=== PATIENT | female | born 1965 | race Two or more races ===

== ENCOUNTER 2021-06-07 14:41 | Emergency (ER) | payer MEDICAID ==
[~2021-06-07] VITALS: Ht 165.1 cm; Wt 81.6 kg
--- NOTE | 2021-06-07 14:56 | NUR ---
to er bed 4, pancho reported slipped and fall from jorge[facility], c/o back and left wrist pain, awaiting md el
[2021-06-07] MEDS ORDERED: HYDROCODONE/APAP 5/325MG TABLET PO ONE (15:30)
[2021-06-07] MEDS ORDERED: KETOROLAC TROMETHAMINE INJ 60 MG/2 ML VIAL IM ONE (15:30)
--- NOTE | 2021-06-07 15:41 | NUR ---
XRAY AT BEDSIDE
[2021-06-07] MEDS ORDERED: KETOROLAC TROMETHAMINE INJ 30 MG/ML VIAL ONE (15:45)
[2021-06-07] MEDS ORDERED: HYDROCODONE/APAP 5/325MG TABLET ONE (15:45)
[2021-06-07 16:29] VITALS: BP 142/71
[2021-06-07] MEDS ORDERED: NAPR500T6 PO (17:08)
[2021-06-07] MEDS ORDERED: CYCL5TAB PO (17:08)
== END 2021-06-07 17:23 | disposition home or self-care (01) ==
LOC: ER 14:47
DX: S16.1XXA Strain of muscle, fascia and tendon at neck level, initial encounter (principal); S90.31XA Contusion of right foot, initial encounter; M62.830 Muscle spasm of back; M81.0 Age-related osteoporosis without current pathological fracture; W01.0XXA Fall on same level from slipping, tripping and stumbling without subsequent striking against object, initial encounter; Y93.89 Activity, other specified; Y92.89 Other specified places as the place of occurrence of the external cause; Y99.8 Other external cause status
CPT/HCPCS: 29125; 71045; 72050; 72110; 73080; 73110; 73610; 96372; 99284; J1885